=== PATIENT | female | born 1990 | race Two or more races ===

== ENCOUNTER 2023-08-02 15:11 | Emergency (ER) | payer MEDICAID, OTHER ==
[~2023-08-02] VITALS: Ht 167.6 cm; Wt 90.3 kg
[2023-08-02 15:32] VITALS: BP 140/94; PULSE 72; RESP 18; TEMP 98.8; O2SAT 100
[2023-08-02 17:49] LABS: BASOPHILS % (AUTO) 0.1 % (0.0-2.0); EOSINOPHILS # (AUTO) 0.1 K/uL (0-0.4); EOSINOPHILS % (AUTO) 0.8 % (0.0-4.0); HEMATOCRIT 36.6 % (36-48); HEMOGLOBIN 12.2 g/dL (12.0-16.0); LYMPHOCYTES # (AUTO) 3.3 K/uL (2.5-16.5); LYMPHOCYTES % (AUTO) 47.5 % (20.5-51.1); MEAN CORPUSCULAR HEMOGLOBIN 29 pg (27-31); MEAN CORPUSCULAR HGB CONC 33 g/dL (33-37); MEAN CORPUSCULAR VOLUME 87.4 fL (80-94); MONOCYTES # (AUTO) 0.3 K/uL (0.8-1.0); MONOCYTES % (AUTO) 4.7 % (1.7-9.3); NEUTROPHILS # (AUTO) 3.2 K/uL (1.8-7.7); NEUTROPHILS % (AUTO) 46.9 % (42.2-75.2); PLATELET COUNT (AUTO) 344 K/uL (140-450); RED BLOOD CELL COUNT(AUTO) 4.19 MIL/uL (4.20-5.40); RED CELL DISTRIBUTION WIDTH 13.4 % (11.6-13.7); WHITE BLOOD COUNT (AUTO) 6.9 K/uL (4.8-10.8)
[2023-08-02 18:01] LABS: APPEARANCE,URINE CLEAR (CLEAR); BILIRUBIN,URINE NEGATIVE (NEGATIVE); BLOOD, URINE TRACE-I (NEGATIVE); COLOR,URINE YELLOW (YELLOW); LEUKOCYTE ESTERASE ,URINE NEGATIVE (NEGATIVE); NITRITE, URINE POSITIVE (NEGATIVE); PH,URINE 6.5 (5.0-9.0); PROTEIN,URINE NEGATIVE (NEGATIVE); UGLUCOSE NEGATIVE (NEGATIVE); UROBILINOGEN,URINE 0.2 EU/dL (0.2 - 1)
[2023-08-02 18:10] LABS: ALBUMIN 3.7 g/dL (3.4-5.0); ANION GAP 12.4 (8-16); CALCIUM 8.6 mg/dL (8.5-10.1); CREATININE 0.7 mg/dL (0.6-1.3); POTASSIUM 4.4 mmol/L (3.5-5.1); TOTAL BILIRUBIN 0.1 mg/dL (0.0-1.0); TOTAL PROTEIN, SERUM 7.4 g/dL (6.4-8.2)
[2023-08-02 18:14] LABS: BACTERIA,URINE >30 (MANY) /HPF (None Seen); MUCUS,URINE 1+ /LPF (None Seen); RBC,URINE 0-5 /HPF (0-5); SQUAMOUS EPITHELIAL CELL,UR 4-10 (MOD) /LPF (0-3 (FEW))
[2023-08-02] MEDS ORDERED: CEPH-588 PO (18:24)
[2023-08-02 18:44] VITALS: BP 133/86; PULSE 68; RESP 18; TEMP 98.5
[2023-08-02 18:52] VITALS: O2SAT 100
== END 2023-08-02 18:44 | disposition home or self-care (01) ==
LOC: MED 15:11
DX: N12 Tubulo-interstitial nephritis, not specified as acute or chronic (principal); N93.8 Other specified abnormal uterine and vaginal bleeding; Z98.890 Other specified postprocedural states; Z79.899 Other long term (current) drug therapy
CPT/HCPCS: 36415; 76856; 80053; 81001; 81025; 85025; 87086; 93976; 99284; Q0092

== ENCOUNTER 2024-03-08 12:20 | Emergency (ER) | payer OTHER ==
[~2024-03-08] VITALS: Ht 167.6 cm; Wt 97.6 kg
[~2024-03-08 12:20] MED LIST: CEPH-588 PO
[2024-03-08 12:36] VITALS: BP 158/88; PULSE 77; RESP 19; TEMP 97.7; O2SAT 96
[2024-03-08] MEDS ORDERED: KETOROLAC 30 MG/ML VIAL ONE (13:21)
[2024-03-08] MEDS ORDERED: CAPS1ADH5 TP (13:22)
[2024-03-08] MEDS ORDERED: NAPR-1704 PO (13:22)
[2024-03-08] MEDS ORDERED: CYCL-711 PO (13:22)
[2024-03-08] MEDS: KETOROLAC 30 MG/ML VIAL IM ONE (13:25)
[2024-03-08 13:42] VITALS: BP 135/82; PULSE 78; RESP 16; TEMP 98.2; O2SAT 99
== END 2024-03-08 13:42 | disposition home or self-care (01) ==
LOC: MED 12:20
DX: S46.811A Strain of other muscles, fascia and tendons at shoulder and upper arm level, right arm, initial encounter (principal); S46.812A Strain of other muscles, fascia and tendons at shoulder and upper arm level, left arm, initial encounter; M54.50 Low back pain, unspecified; I10 Essential (primary) hypertension; Z98.890 Other specified postprocedural states; Z79.899 Other long term (current) drug therapy; X58.XXXA Exposure to other specified factors, initial encounter; Y92.89 Other specified places as the place of occurrence of the external cause; Y93.89 Activity, other specified; Y99.8 Other external cause status
CPT/HCPCS: 81002; 81025; 96372; 99283; J1885